=== PATIENT | female | born 1990 | race Caucasian/White ===

== ENCOUNTER 2016-10-02 17:36 | Emergency (ER) | payer OTHER ==
[2016-10-02] MEDS ORDERED: SODIUM CHLORIDE 0.9% 1,000 ML IV STA ×2 (20:42→22:20)
[2016-10-02] MEDS ORDERED: METOCLOPRAMIDE 5 MG/ML 2 ML VIAL IVP STA (20:46)
[2016-10-02 20:58] LABS: Basophils % (A) 0 %; CH 29.3; CHCM 34.2; Eosinophils % (A) 0 %; HCT 41.5 % (34.0-46.0); HDW 2.46; HGB 13.9 gm/dL (11.4-16.0); Luc # (Auto) 0.12; Luc % (Auto) 1; Lymphocytes % (A) 5 %; MCH 28.8 pg (25.0-35.0); MCHC 33.6 g/dL (31.0-37.0); MCV 85.8 fL (80.0-100.0); Mean Platelet Volume 6.9; Monocytes # (A) 0.6 k/uL (0-1.0); Monocytes % (A) 3 %; Neutrophils # (A) 17.8 k/uL (1.3-7.7); Neutrophils % (A) 91 %; RBC 4.83 m/uL (3.80-5.40); RDW 12.2 % (11.5-15.5); WBC 19.6 k/uL (3.8-10.6); WBC (Perox) 20.07
[2016-10-02 21:16] LABS: ALT 28 U/L (9-52); AST 19 U/L (14-36); Alkaline Phosphatase 65 U/L (38-126); Anion Gap 16 mmol/L; Blood Urea Nitrogen 9 mg/dL (7-17); Calcium 9.7 mg/dL (8.4-10.2); Carbon Dioxide 21 mmol/L (22-30); Chloride 103 mmol/L (98-107); Glucose 95 mg/dL (74-99); Non-African American GFR(MDRD) >60 (>60 ml/min/1.73 sqM); Potassium 4.2 mmol/L (3.5-5.1); Sodium 140 mmol/L (137-145); Total Bilirubin 0.6 mg/dL (0.2-1.3); Total Protein 7.9 g/dL (6.3-8.2)
--- NOTE | 2016-10-02 21:25 | ED ---
General Adult HPI - General Source: patient, family, RN notes reviewed, old records reviewed Mode of arrival: ambulatory Limitations: no limitations <Eugene Smart - Last Filed: 10/02/16 21:25> <Tobias Humphries - Last Filed: 10/02/16 23:22> - General Chief complaint: Dizziness Stated complaint: dizziness, heart racing 13 weeks Time Seen by Provider: 10/02/16 19:47 - History of Present Illness Initial comments: Chief complaint history of present illness a 26-year-old female who is 13 weeks . She states that while at work she was feeling dizzy. She's vomited half a dozen times today. She's had emesis gravidarum throughout the . (Eugene Smart) - Related Data Home Medications Medication Instructions Recorded Confirmed Pnv with Ca,No.72/Iron/FA 1 tab PO DAILY 10/02/16 10/02/16 [ Plus Tablet] Allergies Allergy/AdvReac Type Severity Reaction Status Date / Time No Known Allergies Allergy Verified 10/02/16 20:00 Review of Systems ROS Other: All systems not noted in ROS Statement are negative. <Eugene Smart - Last Filed: 10/02/16 21:25> ROS Other: All systems not noted in ROS Statement are negative. <Tobias Humphries - Last Filed: 10/02/16 23:22> ROS Statement: Those systems with pertinent positive or pertinent negative responses have been documented in the HPI. Review of systems when resting she feels fine. When she stands up she feels dizzy. Again she's been vomiting for multiple weeks and 6 times today. No diarrhea. Decreased appetite. Denies any pain. All systems were reviewed past medical problems migraines. Surgeries right inguinal herniorrhaphy repair. Family history mother had arrhythmias. Patient denies ALLERGIES she does not smoke. Denies alcohol use. (Eugene Smart) (Tobias Humphries) Past Medical History Additional Past Medical History / Comment(s): migraines History of Any Multi-Drug Resistant Organisms: None Reported Past Surgical History: Hernia Repair Past Psychological History: Anxiety, Bipolar, Depression Smoking Status: Never smoker Past Alcohol Use History: Occasional Past Drug Use History: None Reported <Eugene Smart - Last Filed: 10/02/16 21:25> General Exam Limitations: no limitations <Eugene Smart - Last Filed: 10/02/16 21:25> General appearance: alert, in no apparent distress Head exam: Present: atraumatic, normocephalic, normal inspection Eye exam: Present: normal appearance, PERRL, EOMI. Absent: scleral icterus, conjunctival injection, periorbital swelling ENT exam: Present: normal exam, mucous membranes moist Neck exam: Present: normal inspection. Absent: tenderness, meningismus, lymphadenopathy Respiratory exam: Present: normal lung sounds bilaterally. Absent: respiratory distress, wheezes, rales, rhonchi, stridor Cardiovascular Exam: Present: regular rate, normal rhythm, normal heart sounds. Absent: systolic murmur, diastolic murmur, rubs, gallop, clicks GI/Abdominal exam: Present: soft, normal bowel sounds. Absent: distended, tenderness, guarding, rebound, rigid Extremities exam: Present: normal inspection, full ROM, normal capillary refill. Absent: tenderness, pedal edema, joint swelling, calf tenderness Back exam: Present: normal inspection Neurological exam: Present: alert, oriented X3, CN II-XII intact Psychiatric exam: Present: normal affect, normal mood Skin exam: Present: warm, dry, intact, normal color. Absent: rash <Tobias Humphries - Last Filed: 10/02/16 23:22> - General Exam Comments Initial Comments: General: The patient is awake and alert, in no distress, and does not appear acutely ill. Comfortable when sitting still dizzy when she stands up. Vomited 6 times today. 13 weeks . Vital signs show temperature 98.5 pulse 98 history rate 18 pulse ox 99% room air blood pressure 1 weight over 67 Eye: Pupils are equal, , extra-ocular movements are intact; there is normal conjunctiva bilaterally. No signs of icterus. Ears, nose, mouth and throat: There are moist mucous membranes and no oral lesions. Neck: The neck is supple, there is no tenderness Cardiovascular: There is a regular rate and rhythm. No murmur, rub or gallop is appreciated. Respiratory: Lungs are clear to auscultation, respirations are non-labored, breath sounds are equal. No wheezes, stridor, rales, or rhonchi. Gastrointestinal: 13 weeks , nausea vomiting since the beginning of . She vomited 6 times today. Neurological: No neuro deficits Skin: Skin is warm and dry and no rashes or lesions are noted. (Eugene Smart) Course <Eugene Smart - Last Filed: 10/02/16 21:25> <Tobias Humphries - Last Filed: 10/02/16 23:22> Vital Signs 10/02/16 10/02/16 10/02/16 17:47 20:41 20:47 Temperature 98.5 F Pulse Rate 98 102 H 86 Respiratory 18 Rate Blood Pressure 108/67 O2 Sat by Pulse 99 Oximetry 10/02/16 23:16 Temperature 98.2 F Pulse Rate 90 Respiratory 20 Rate Blood Pressure 102/59 O2 Sat by Pulse 97 Oximetry (Eugene Smart) (Tobias Humphries) - Reevaluation(s) Reevaluation #1: 10/02/16 22:50 Patient states her symptoms are improved, asking to go home. Feeling better ( Tobias Humphries) EKG Findings - EKG Comments: EKG Findings:: EKG was done and reviewed at 2022 showing normal sinus rhythm no acute ST elevation no ectopy no ischemic changes. Rate 80. Was 1:30 QRS 84 QT [address] Smart <Eugene Smart - Last Filed: 10/02/16 21:25> Medical Decision Making - Lab Data Result diagrams: 10/02/16 20:40 10/02/16 20:40 <Eugene Smart - Last Filed: 10/02/16 21:25> - Lab Data Result diagrams: 10/02/16 20:40 10/02/16 20:40 <Tobias Humphries - Last Filed: 10/02/16 23:22> - Medical Decision Making 26 female year with hyperemesis, patient's symptoms are improved at this point. Labwork is otherwise normal. Urine is negative the patient can be discharged home\ Will await urine culture (Tobias Humphries) - Lab Data Lab Results 10/02/16 10/02/16 10/02/16 Range/Units 20:40 20:40 20:40 WBC 19.6 H (3.8-10.6) k/uL RBC 4.83 (3.80-5.40) m/uL Hgb 13.9 (11.4-16.0) gm/dL Hct 41.5 (34.0-46.0) % MCV 85.8 (80.0-100.0) fL MCH 28.8 (25.0-35.0) pg MCHC 33.6 (31.0-37.0) g/dL RDW 12.2 (11.5-15.5) % Plt Count 243 (150-450) k/uL Neutrophils % 91 % Lymphocytes % 5 % Monocytes % 3 % Eosinophils % 0 % Basophils % 0 % Neutrophils # 17.8 H (1.3-7.7) k/uL Lymphocytes # 1.0 (1.0-4.8) k/uL Monocytes # 0.6 (0-1.0) k/uL Eosinophils # 0.0 (0-0.7) k/uL Basophils # 0.0 (0-0.2) k/uL Sodium 140 (137-145) mmol/L Potassium 4.2 (3.5-5.1) mmol/L Chloride 103 (98-107) mmol/L Carbon Dioxide 21 L (22-30) mmol/L Anion Gap 16 mmol/L BUN 9 (7-17) mg/dL Creatinine 0.58 (0.52-1.04) mg/dL Est GFR (MDRD) Af Amer >60 (>60 ml/min/1.73 sqM) Est GFR (MDRD) Non-Af >60 (>60 ml/min/1.73 sqM) Glucose 95 (74-99) mg/dL Calcium 9.7 (8.4-10.2) mg/dL Total Bilirubin 0.6 (0.2-1.3) mg/dL AST 19 (14-36) U/L ALT 28 (9-52) U/L Alkaline Phosphatase 65 (38-126) U/L Total Protein 7.9 (6.3-8.2) g/dL Albumin 4.6 (3.5-5.0) g/dL Urine Color Yellow Urine Appearance Turbid H (Clear) Urine pH 5.5 (5.0-8.0) Ur Specific [place] 1.025 (1.001-1.035) Urine Protein 1+ H (Negative) Urine Glucose (UA) Negative (Negative) Urine Blood Negative (Negative) Urine Nitrate Negative (Negative) Urine Bilirubin Negative (Negative) Urine Urobilinogen <2.0 (<2.0) mg/dL Ur Leukocyte Esterase Trace H (Negative) Urine RBC 5 (0-5) /hpf Urine WBC 33 H (0-5) /hpf Ur Squamous Epith Cells 56 H (0-4) /hpf Amorphous Sediment Few H (None) /hpf Urine Bacteria Moderate H (None) /hpf Hyaline Casts 21 H (0-2) /lpf Urine Mucus Many H (None) /hpf (Eugene Smart) (Tobias Humphries) Disposition <Eugene Smart - Last Filed: 10/02/16 21:25> <Tobias Humphries - Last Filed: 10/02/16 23:22> Clinical Impression: Hyperemesis gravidarum, Nausea & vomiting Disposition: HOME SELF-CARE Condition: Good Instructions: Hyperemesis Gravidarum (ED) Referrals: Clinton Solis MD [Primary Care Provider] - 1-2 days
[2016-10-02] MEDS ORDERED: PYRIDOXINE 100 MG/ML 1 ML VIAL IVP STA (22:20)
[2016-10-02] MEDS ORDERED: diphenhydrAMINE 50 MG/ML 1 ML VIAL IVP STA (22:20)
[2016-10-02 23:12] LABS: Amorphous Sediment,Urine Few /hpf; Appearance,Urine Turbid (Clear); Bacteria,Urine Moderate /hpf; Bilirubin,Urine Negative (Negative); Glucose,Urine (UA) Negative (Negative); Ketones,Urine 4+ (Negative); Leukocyte Esterase,Urine Trace (Negative); Mucus,Urine Many /hpf; Nitrite,Urine Negative (Negative); PH, Urine 5.5 (5.0-8.0); Particle Count 114008; Protein,Urine 1+ (Negative); RBC,Urine 5 /hpf (0-5); Specific Gravity,Urine 1.025 (1.001-1.035); Squamous Epithelial Cell,Urine 56 /hpf (0-4); UA Billing (MACRO vs. MICRO) MICRO; Urobilinogen,Urine <2.0 mg/dL (<2.0); WBC,Urine 33 /hpf (0-5)
[2016-10-02 23:17] VITALS: BP 102/59; PULSE 90; RESP 20; TEMP 98.2
== END 2016-10-02 23:33 | disposition home or self-care (01) ==
LOC: EC 17:36
DX: O21.0 Mild hyperemesis gravidarum (principal); O26.891 Other specified pregnancy related conditions, first trimester; R42 Dizziness and giddiness; Z3A.13 13 weeks gestation of pregnancy
CPT/HCPCS: 99284; 96374; 96375; 36415; 80053; 85025; 81001; 87086; J1200; J3415; J2765; 93005

== ENCOUNTER → 2016-10-09 | Outpatient (CLI) | payer OTHER ==
[2016-10-09 19:05] LABS: Hemoglobin A1C 5.5 % (4.2-6.1)
== END | disposition home or self-care (01) ==
LOC: LABWHC1 12:06
PROVIDERS: ATTEND Obstetrics & Gynecology
DX: Z13.1 Encounter for screening for diabetes mellitus (principal)
CPT/HCPCS: 36415; 83036

== ENCOUNTER → 2017-01-09 | Outpatient (CLI) | payer OTHER ==
[2017-01-09 11:39] LABS: CHCM 32.6; HCT 35.3 % (34.0-46.0); HDW 2.53; HGB 11.7 gm/dL (11.4-16.0); MCH 29.6 pg (25.0-35.0); MCHC 33.1 g/dL (31.0-37.0); MCV 89.5 fL (80.0-100.0); Mean Platelet Volume 6.9; RBC 3.95 m/uL (3.80-5.40); WBC 12.3 k/uL (3.8-10.6)
== END | disposition home or self-care (01) ==
LOC: LABWHC1 10:19
PROVIDERS: ATTEND Obstetrics & Gynecology
DX: Z34.02 Encounter for supervision of normal first pregnancy, second trimester (principal); Z3A.00 Weeks of gestation of pregnancy not specified
CPT/HCPCS: 36415; 82950; 85027; 86850

== ENCOUNTER → 2017-01-16 | Outpatient (CLI) | payer OTHER ==
[2017-01-16 12:14] LABS: Glucose 3 Hour, Gest 127 mg/dL
== END | disposition home or self-care (01) ==
LOC: LABWHC1 08:00
PROVIDERS: ATTEND Obstetrics & Gynecology
DX: O99.810 Abnormal glucose complicating pregnancy (principal); Z3A.00 Weeks of gestation of pregnancy not specified
CPT/HCPCS: 36415; 82951; 82952

== ENCOUNTER 2017-02-11 22:18 | Outpatient (CLI) | payer OTHER ==
[2017-02-11 22:49] LABS: Glucose,Whole Blood 121 mg/dL (75-99)
[2017-02-11 22:55] LABS: Appearance,Urine Clear (Clear); Bilirubin,Urine Negative (Negative); Glucose,Urine (UA) 2+ (Negative); Ketones,Urine Negative (Negative); Leukocyte Esterase,Urine Negative (Negative); Nitrite,Urine Negative (Negative); PH, Urine 6.5 (5.0-8.0); Protein,Urine Negative (Negative); Specific Gravity,Urine 1.007 (1.001-1.035); UA Billing (MACRO vs. MICRO) CHEM; Urobilinogen,Urine <2.0 mg/dL (<2.0)
[2017-02-11 23:03] VITALS: BP 114/72; PULSE 79; RESP 16; TEMP 95.9
--- NOTE | 2017-03-07 08:33 | P.MSEPDOC ---
Presenting Problems - Arrival Data Date of Arrival on Unit: 02/11/17 Time of Arrival on Unit: 21:19 Mode of Transport: Wheelchair - Complaint OB-Reason for Admission/Chief Complaint: Pain Comment: Lower back pain, absence of contractions Medical History - Information : 1 Para: 0 Term: 0 : 0 Abortions: Spontaneous or Elective: 0 Number of Living Children: 0 - Gestational Age Expected Date of Delivery: 04/04/17 Gestational Age by SERVANDO (wks/days): 36 Weeks and 0 Days - History Complications: GDM Comment: Patient seen at [facility] last week for evaluation for gestational diabetes, patient currently diet controlled. Review of Systems - Review of Systems Constitutional: No problems Breast: No problems ENT: No problems Cardiovascular: No problems Respiratory: No problems Gastrointestinal: No problems Genitourinary: No problems Musculoskeletal: No problems Neurological: No problems Skin: No problems Vital Signs - Temperature Temperature: 95.9 F Temperature Source: Temporal Artery Scan - Pulse Pulse Oximetery Pulse Rate: 79 Pulse Assessment Method: Automatic Cuff - Respirations Respiratory Rate: 16 Oxygen Delivery Method: Room Air - Blood Pressure Sitting Blood Pressure: 114/72 Blood Pressure Mean: 86 Blood Pressure Source: Automatic Cuff Medical Screen Scoring (Pre) - Cervical Exam Dilation: 0 cm = 0 Membranes: Intact - Uterine Contractions Frequency: N/A Duration: N/A Intensity: N/A - Maternal Vital Signs Maternal Temperature: N/A Maternal Blood Pressure: N/A Signs of Preeclampsia: N/A Maternal Respirations: N/A - Maternal Trauma Maternal Trauma: N/A - Assessment Baseline FHR: 135 Heart Rate - NICHD Category: Category I (Normal) = 0 NST: Reactive Position: N/A Station: N/A - Total Score Total Score (Pre): 0 - Level of Risk Level of Risk: Low (0-5) Physician Notification (Pre) - Physician Notified Physician Notified Date: 02/11/17 Physician Notified Time: 22:30 Physician/Practitioner Notifed:: Dr. Osorio - Notification Comment Comment: Collect FFN, check cervix, collect and send UA, call physician with report. Medical Screen Scoring (Post) - Cervical Exam Dilation: Exam Deferred - Uterine Contractions Frequency: N/A Duration: N/A Intensity: N/A - Maternal Vital Signs Maternal Temperature: N/A Maternal Blood Pressure: N/A Signs of Preeclampsia: N/A Maternal Respirations: N/A - Maternal Trauma Maternal Trauma: N/A - Assessment Heart Rate: 135 Heart Rate - NICHD Category: Category I (Normal) = 0 NST: Reactive Position: N/A Station: N/A - Total Score Total Score (Post): 0 - Post Treatment Level of Risk Post Treatment Level of Risk: Low (0-5) Physician Notification (Post) - Physician Notified Physician Notified Date: 02/11/17 Physician Notified Time: 23:06 Physician/Practitioner Notified:: Dr. Osorio - Notification Comment Comment: Okay to discharge patient home with instructions Disposition - Disposition OB Disposition: Discharge to home, Written follow up instructions reviewed Discharge Date: 02/11/17 Discharge Time: 23:18 I agree with the RN Medical Screening Exam: Yes Risk & Benefit of care provided described in d/c instruction: Yes Diagnosis: RELATED CONDITIONS, UNSPECIFIED, THIRD TRIMESTER
== END 2017-02-11 23:18 | disposition home or self-care (01) ==
LOC: FBPOP 22:18
PROVIDERS: ATTEND Obstetrics & Gynecology
DX: O26.93 Pregnancy related conditions, unspecified, third trimester (principal); Z3A.36 36 weeks gestation of pregnancy
CPT/HCPCS: 59025; 81003; 99213

== ENCOUNTER → 2017-02-15 | Outpatient (CLI) | payer OTHER | END | disposition home or self-care (01) | LOC: LABWHC1 16:19 | PROVIDERS: ATTEND Pediatrics Neonatal-Perinatal Medicine | DX: Z00.00 Encounter for general adult medical examination without abnormal findings (principal); E78.00 Pure hypercholesterolemia, unspecified; E03.9 Hypothyroidism, unspecified; I12.9 Hypertensive chronic kidney disease with stage 1 through stage 4 chronic kidney disease, or unspecified chronic kidney disease; N18.3 Chronic kidney disease, stage 3 (moderate); I25.10 Atherosclerotic heart disease of native coronary artery without angina pectoris; I48.91 Unspecified atrial fibrillation; R79.9 Abnormal finding of blood chemistry, unspecified | CPT/HCPCS: 36415; 82947; 83036 ==

== ENCOUNTER 2017-03-16 13:42 | Outpatient (CLI) | payer OTHER ==
[2017-03-16 15:48] VITALS: BP 118/81; PULSE 109; RESP 16; TEMP 96.2
== END 2017-03-16 15:35 | disposition home or self-care (01) ==
LOC: FBPOP 13:42
PROVIDERS: ATTEND Obstetrics & Gynecology
DX: O47.1 False labor at or after 37 completed weeks of gestation (principal); Z3A.37 37 weeks gestation of pregnancy
CPT/HCPCS: 59025; 99213

== ENCOUNTER 2017-03-17 20:33 | Outpatient (CLI) | payer OTHER ==
[2017-03-17 20:57] VITALS: BP 133/80; PULSE 93; RESP 18; TEMP 97.2
--- NOTE | 2017-03-18 16:05 | P.MSEPDOC ---
Presenting Problems - Arrival Data Date of Arrival on Unit: 03/17/17 Time of Arrival on Unit: 20:33 Mode of Transport: Wheelchair - Complaint OB-Reason for Admission/Chief Complaint: Possible Onset of Labor, Rule Out SROM Comment: ctx 729 SROM 0800 Medical History - Information : 1 Para: 0 Term: 0 : 0 Abortions: Spontaneous or Elective: 0 Number of Living Children: 0 - Gestational Age Expected Date of Delivery: 04/04/17 Gestational Age by SERVANDO (wks/days): 37 Weeks and 4 Days - History Complications: GDM Comment: glyburide Review of Systems - Review of Systems Constitutional: No problems Breast: No problems ENT: No problems Cardiovascular: No problems Respiratory: No problems Gastrointestinal: No problems Genitourinary: No problems Musculoskeletal: No problems Neurological: No problems Skin: No problems Vital Signs - Temperature Temperature: 97.2 F Temperature Source: Temporal Artery Scan - Pulse Right Brachial Pulse Rate: 93 Pulse Assessment Method: Automatic Cuff - Respirations Respiratory Rate: 18 Oxygen Delivery Method: Room Air O2 Sat by Pulse Oximetry: 98 - Blood Pressure Right Arm Blood Pressure: 133/80 Blood Pressure Mean: 97 Blood Pressure Source: Automatic Cuff Medical Screen Scoring (Pre) - Cervical Exam Dilation: 1-3 cm = 1 Effacement: More than 50% = 2 Membranes: Intact - Uterine Contractions Frequency: > 5 minutes apart = 1 Duration: > 40 seconds = 2 - Assessment Baseline FHR: 130 Heart Rate - NICHD Category: Category I (Normal) = 0 NST: Reactive - Total Score Total Score (Pre): 6 - Level of Risk Level of Risk: Medium (6-9) Medical Screen Scoring (Post) - Cervical Exam Dilation: 1-3 cm = 1 Effacement: More than 50% = 2 Membranes: Intact - Uterine Contractions Frequency: > or = 36 weeks =2 Duration: > 40 seconds = 2 - Total Score Total Score (Post): 7 - Post Treatment Level of Risk Post Treatment Level of Risk: Medium (6-9) Physician Notification (Post) - Physician Notified Physician Notified Date: 03/18/17 Physician Notified Time: 10:28 Physician/Practitioner Notified:: Evelyn New Order Received: Yes (discharge if no cervical change) Disposition - Disposition OB Disposition: Triage, Discharge to home, Written follow up instructions reviewed Discharge Date: 03/18/17 Discharge Time: 00:00 I agree with the RN Medical Screening Exam: Yes Risk & Benefit of care provided described in d/c instruction: Yes Diagnosis: FALSE LABOR AT OR AFTER 37 COMPLETED WEEKS OF GESTATION
== END 2017-03-18 | disposition home or self-care (01) ==
LOC: FBPOP 20:33
PROVIDERS: ATTEND Obstetrics & Gynecology
DX: O47.1 False labor at or after 37 completed weeks of gestation (principal); Z3A.37 37 weeks gestation of pregnancy
CPT/HCPCS: 59025; 84112; 99213

== ENCOUNTER 2017-03-18 13:51 | Inpatient (IN) | payer OTHER ==
[2017-03-18] MEDS ORDERED: OXYTOCIN 10 UNIT/ML 1 ML VIAL IM PRN (14:26)
[2017-03-18] MEDS ORDERED: METHYLERGONOVINE 0.2 MG/ML 1 ML AMP IM PRN (14:26)
[2017-03-18] MEDS ORDERED: CARBOPROST TROMETHAMINE 250 MCG/ML 1 ML AMP IM PRN (14:26)
[2017-03-18] MEDS ORDERED: TERBUTALINE 1 MG/ML VIAL SQ PRN (14:26)
[2017-03-18] MEDS ORDERED: LIDOCAINE 1% (PF) 10 MG/ML (30 ML SDV) SQ PRN (14:26)
[2017-03-18 14:35] LABS: Basophils % (A) 0 %; CH 29.5; CHCM 34.1; Eosinophils % (A) 0 %; HCT 37.2 % (34.0-46.0); HDW 2.61; HGB 12.7 gm/dL (11.4-16.0); Luc # (Auto) 0.28; Luc % (Auto) 2; Lymphocytes # (A) 2.6 k/uL (1.0-4.8); Lymphocytes % (A) 15 %; MCH 29.5 pg (25.0-35.0); MCV 86.8 fL (80.0-100.0); Mean Platelet Volume 7.3; Monocytes # (A) 0.7 k/uL (0-1.0); Monocytes % (A) 4 %; Neutrophils # (A) 13.7 k/uL (1.3-7.7); Neutrophils % (A) 79 %; RBC 4.29 m/uL (3.80-5.40); RDW 13.4 % (11.5-15.5); WBC 17.3 k/uL (3.8-10.6); WBC (Perox) 18.06
--- NOTE | 2017-03-18 15:08 | P.HPOB ---
History of Present Illness H&P Date: 03/18/17 Chief Complaint: Rupture of membranes, contractions This is a 26-year-old female 1 para 0 with an estimated date of confinement of 04/04/2017, estimated gestational age of 37-4/7 weeks, who presented to labor and delivery complaining of she will rupture membranes at approximately 11:30 AM today to where it soaked her clothes. It has been continuous since that time. She has been feeling contractions for the last few days that have become stronger and more regular. She did come in to triage late last night and was checked with amnisure and it was negative at that time. care has been with Dr. Myers and has been complicated by gestational diabetes on glyburide. She states her sugars have been fairly well- controlled with an occasional high level. labs: Blood type-O- Antibody screen-negative, she does not recall ever receiving RhoGAM during this . 1 hour Glucola-169 Three-hour Glucola-fasting and one-hour are elevated Syphilis antibody-negative nonreactive Hepatitis B surface antigen-negative HIV-nonreactive Rubella-nonimmune Toxoplasma-negative Obstetrical history: Gynecologic history: Denies any sexual transmitted diseases Review of Systems Constitutional: Denies chills, Denies fever Eyes: denies blurred vision, denies pain Cardiovascular: Denies chest pain, Denies shortness of breath Gastrointestinal: Reports abdominal pain (Contractions) Genitourinary: Reports Musculoskeletal: Denies myalgias Neurological: Denies numbness, Denies weakness Past Medical History Additional Past Medical History / Comment(s): migraines History of Any Multi-Drug Resistant Organisms: None Reported Past Surgical History: Hernia Repair (Right inguinal) Additional Past Surgical History / Comment(s): [place] teeth Past Psychological History: No Psychological Hx Reported Smoking Status: Former smoker Past Alcohol Use History: None Reported Past Drug Use History: None Reported Medications and Allergies Home Medications Medication Instructions Recorded Confirmed Type Pnv,Calcium 72/Iron/Folic Acid 1 tab PO DAILY 10/02/16 03/18/17 History [ Plus Tablet] glyBURIDE [Glyburide] 5 mg PO BID 03/16/17 03/18/17 History Allergies Allergy/AdvReac Type Severity Reaction Status Date / Time No Known Allergies Allergy Verified 03/16/17 13:51 Exam Osteopathic Statement: *. No significant issues noted on an osteopathic structural exam other than those noted in the History and Physical/Consult. - Vital Signs Vital signs: Intake and Output 03/17/17 03/18/17 03/18/17 22:59 06:59 14:59 Other: Weight 80.286 kg Patient Weight 03/19/17 06:59 Weight 80.286 kg HEENT: Within normal limits Heart: Regular rate and rhythm Lungs: Clear to auscultation bilaterally Abdomen: Cervix: 5-6 cm/90%/-2 station, positive amnisure with clear fluid noted heart tones: Reactive Contractions: Every 2-3 minutes Extremities: Negative Homans Results Result Diagrams: 03/18/17 14:25 Abnormal Lab Results - Last 24 Hours (Table) 03/18/17 Range/Units 14:25 WBC 17.3 H (3.8-10.6) k/uL Neutrophils # 13.7 H (1.3-7.7) k/uL Assessment and Plan (1) 37 weeks gestation of Status: Acute (2) Spontaneous rupture of membranes Status: Acute Plan: Admission for labor. Epidural anesthesia. Expectant management.
[2017-03-18 15:10] VITALS: BMI 27.7
[2017-03-18] MEDS ORDERED: fentaNYL (PF) 50 MCG/ML 5 ML AMP ONE ×2 (15:12→22:42)
[2017-03-18] MEDS ORDERED: SODIUM CHLORIDE 0.9% 100 ML BAG ONE ×2 (15:12→22:42)
[2017-03-18] MEDS ORDERED: BUPIVACAINE (PF) 0.25% 30 ML VIAL ONE ×2 (15:12→22:42)
[2017-03-18] MEDS ORDERED: BUPIVACAINE (PF) 0.25% 25 ML, fentaNYL (PF) 200 MCG in SODIUM CHLORIDE 0.9% 71 ML EPIDURAL ONE (15:30)
[2017-03-18 15:44] LABS: Glucose,Whole Blood 108 mg/dL (75-99)
[2017-03-18] MEDS: LACTATED RINGERS 1,000 ML IV SCH (16:10)
[2017-03-18] MEDS ORDERED: OXYTOCIN 20 UNITS/1000 ML NS 1,000 ML IV SCH ×2 (17:15→23:48)
[2017-03-18 18:25] LABS: Glucose,Whole Blood 114 mg/dL (75-99)
[2017-03-18] MEDS ORDERED: ceFAZolin 2 GM in SODIUM CHLORIDE 0.9% 100 ML IVPB ONE (22:27)
[2017-03-18] MEDS ORDERED: CITRIC ACID-SODIUM CITRATE 15 ML CUP PO ONE (22:27)
[2017-03-18] MEDS ORDERED: OXYTOCIN 10 UNIT/ML 1 ML VIAL ONE (22:42)
[2017-03-18] MEDS ORDERED: KETOROLAC 30 MG/ML 1 ML VIAL ONE (22:42)
--- NOTE | 2017-03-18 23:34 | P.OP ---
Date of Procedure: 03/18/17 Preoperative Diagnosis: 1. Intrauterine at 37-4/7 weeks. 2. Arrest of descent. 3. Gestational diabetes. Postoperative Diagnosis: Same Procedure(s) Performed: Primary low transverse section Implants: Anesthesia: epidural Surgeon: Pattie Rivas [employer] Cutter #1: Navin Lopez Estimated Blood Loss (ml): 600 Pathology: other (Placenta) Condition: stable Disposition: floor Indications for Procedure: This is a 26-year-old female 1 para 0 at 37-4/7 weeks who presented in active labor with spontaneous rupture of membranes. She did receive oxytocin augmentation of labor and progressed to complete dilation. She pushed for approximately an hour and 45 minutes with arrest of descent noted and increasing caput noted. At this point maternal exhaustion also set in. The patient requested section and I agreed based on the poor descent of the presenting part. I have discussed the risks, benefits, and alternative therapies for the above- mentioned procedure and for both sedation/anesthesia as well as necessary blood products administration, if indicated, as they pertain to this patient. The patient has indicated her understanding and acceptance of the risks and procedures discussed. Operative Findings: A viable female is noted in the left occiput transverse lie with scores of 8 at 1 minute and 9 at 5 minutes and weight of 8 lbs. 5 oz. Normal uterus tubes and ovaries are noted. Description of Procedure: The patient is taken to the operating room where she is placed in the dorsal supine position with leftward tilt after epidural anesthesia is bolused. She is prepped and draped in the normal sterile fashion. Skin was tested and found to be adequately anesthetized. A Pfannenstiel skin incision was made with a scalpel. A second knife was used to carry the incision down to the underlying layer of fascia. The fascia was nicked in the midline with a scalpel and then extended laterally bilaterally with Norton scissors. The anterior lip of the fascia was grasped with 2 Kofi clamps and then dissected off the underlying rectus muscle in the midline with Notron scissors. The inferior aspect of the fascial incision was grasped with 2 Kofi clamps and dissected off the underlying rectus muscle and the midline with Norton scissors. Next the peritoneum layer was tented up with 2 hemostats and then entered sharply with the scalpel. The incision is extended superiorly and inferiorly with Metzenbaum scissors. Next a DeLee retractor is placed. The vesicouterine peritoneum is entered sharply with Metzenbaum scissors and extended laterally bilaterally with Metzenbaum scissors and then the bladder flap is pushed inferiorly. The lower uterine segment is incised in transverse fashion with the scalpel and then bluntly entered with a hemostat. Clear fluid is noted. The incision was then extended laterally bilaterally with 2 fingers. Next the infant's head is delivered through the incision. Nose and mouth are bulb suctioned. The remainder of the infant is easily delivered and placed on mother 's abdomen. Cord is clamped and cut. Infant is taken to warmer by nursing staff. Uterine fundus is gently massaged and placenta is delivered manually. Uterus is exteriorized and cleared of all clots and debris. Uterine incision is closed with 0 Vicryl suture in a running locked fashion. A second layer of 0 Vicryl suture is used in a running fashion for hemostasis. Once adequate hemostasis as assured, the vesicouterine peritoneum is reapproximated with 2-0 Vicryl suture in a running fashion. Posterior cul-de-sac is suctioned of all clots and debris. Uterus is returned to the abdomen. Incision is noted to be hemostatic. Peritoneal layer is closed with 0 Vicryl suture in a running fashion. Muscle layer is reapproximated with 0 Vicryl suture in interrupted fashion. Fascia layer is then closed with 0 PDS suture with 2 sutures meeting in the midline and the knots buried in either side and in the midline. The subcutaneous tissue was then closed with 2-0 Vicryl suture. Skin layer was then closed with arie. All sponge and needle counts are correct. The patient is taken to recovery room in stable condition.
[2017-03-18] MEDS ORDERED: ONDANSETRON 4 MG/2 ML VIAL IVP PRN (23:48)
[2017-03-18] MEDS ORDERED: ZOLPIDEM 5 MG TAB PO PRN (23:48)
[2017-03-18] MEDS ORDERED: diphenhydrAMINE 25 MG CAP PO PRN (23:48)
[2017-03-18] MEDS ORDERED: diphenhydrAMINE 50 MG CAP PO PRN (23:48)
[2017-03-18] MEDS ORDERED: Acetaminophen-Codeine 300-30mg TAB PO PRN (23:48)
[2017-03-18] MEDS ORDERED: HYDROmorphone PCA 5 MG/25 ML SYRINGE IV PRN (23:48)
[2017-03-18] MEDS ORDERED: METOCLOPRAMIDE 5 MG/ML 2 ML VIAL IVP PRN (23:48)
[2017-03-18] MEDS ORDERED: ACETAMINOPHEN TAB 325 MG TAB PO PRN (23:48)
[2017-03-18] MEDS ORDERED: diphenhydrAMINE 50 MG/ML 1 ML VIAL IVP PRN ×2 (23:48)
[2017-03-18] MEDS ORDERED: NALOXONE 0.4 MG/ML 1 ML VIAL IV PRN (23:48)
[2017-03-18] MEDS ORDERED: MEASLES-MUMPS-RUBELLA VACC/PF 12,500 UNIT/0.5 ML VIAL SQ ONE (23:48)
[2017-03-18] MEDS ORDERED: LANOLIN CREAM 5 GM TUBE TOPICAL PRN (23:48)
[2017-03-19] MEDS: SENNOSIDES-DOCUSATE SODIUM 1 EACH TAB PO SCH ×2 (02:07→19:34)
[2017-03-19] MEDS: LACTATED RINGERS 1,000 ML IV SCH ×2 (02:14→05:56)
[2017-03-19] MEDS ORDERED: Rhogam IMMUNE GLOBULIN 1,500 UNIT/1 ML IM ONE (04:30)
[2017-03-19] MEDS: KETOROLAC 30 MG/ML 1 ML VIAL IVP SCH ×3 (05:47→18:51)
[2017-03-19 06:25] LABS: Basophils % (A) 0 %; CH 29.3; CHCM 34.1; Eosinophils % (A) 0 %; HCT 30.6 % (34.0-46.0); HDW 2.57; HGB 10.3 gm/dL (11.4-16.0); Luc # (Auto) 0.22; Luc % (Auto) 1; Lymphocytes # (A) 1.8 k/uL (1.0-4.8); Lymphocytes % (A) 9 %; MCH 29.1 pg (25.0-35.0); MCHC 33.7 g/dL (31.0-37.0); MCV 86.2 fL (80.0-100.0); Mean Platelet Volume 7.5; Monocytes # (A) 0.6 k/uL (0-1.0); Monocytes % (A) 3 %; Neutrophils # (A) 16.8 k/uL (1.3-7.7); Neutrophils % (A) 87 %; RBC 3.55 m/uL (3.80-5.40); WBC 19.4 k/uL (3.8-10.6); WBC (Perox) 20.38
--- NOTE | 2017-03-19 06:51 | P.PNOBGPC ---
Subjective - Subjective Principal diagnosis: S/P 1*LTCS POD #1 Interval history: PAtient seen and examined. Pain controlled. Tolerating clears. Denies N/V, F/C, CP, SOB, calf pain. Patient reports: Reports appetite normal, Reports pain well controlled Sledge: doing well Objective - Vital Signs Latest vital signs: Vital Signs Temp Pulse Resp BP Pulse Ox 03/19/17 04:00 98.7 F 88 16 116/69 96 03/19/17 01:35 97.6 F 100 16 137/69 03/19/17 01:05 110 H 16 148/77 98 03/19/17 00:35 108 H 16 117/60 99 03/19/17 00:20 126 H 16 132/66 98 03/19/17 00:05 118 H 16 124/64 98 03/18/17 23:50 120 H 16 125/69 98 03/18/17 23:48 98 03/18/17 23:35 96.8 F L 134 H 16 129/61 97 03/18/17 13:54 97.3 F L 93 16 136/80 98 Intake and Output 03/18/17 03/18/17 03/19/17 14:59 22:59 06:59 Output Total 600 Balance -600 Output: Estimated Blood Loss 600 Other: Weight 80.286 kg Patient Weight 03/19/17 06:59 Weight 80.286 kg - Exam Lungs: bilateral: normal Chest: Normal S1, Normal S2 Extremities: Present: normal Abdomen: Present: normal appearance, soft. Absent: distention, tenderness Incision: Present: normal, dry, intact Uterus: Present: normal, firm - Labs Labs: Abnormal Lab Results - Last 24 Hours (Table) 03/18/17 03/18/17 03/18/17 Range/Units 14:25 15:42 18:23 WBC 17.3 H (3.8-10.6) k/uL RBC (3.80-5.40) m/uL Hgb (11.4-16.0) gm/dL Hct (34.0-46.0) % Neutrophils # 13.7 H (1.3-7.7) k/uL POC Glucose (mg/dL) 108 H 114 H (75-99) mg/dL 03/19/17 Range/Units 06:04 WBC 19.4 H (3.8-10.6) k/uL RBC 3.55 L (3.80-5.40) m/uL Hgb 10.3 L (11.4-16.0) gm/dL Hct 30.6 L (34.0-46.0) % Neutrophils # 16.8 H (1.3-7.7) k/uL POC Glucose (mg/dL) (75-99) mg/dL Assessment and Plan (1) Status post primary low transverse section Narrative/Plan: 1. D/C wyman 2. D/C ASSIGNMENT DESK ASSISTANT 3. po pain meds 4. increase ambulation 5. advance diet with flatus Current Visit: Yes Status: Acute Code(s): Z98.891 - HISTORY OF UTERINE SCAR FROM PREVIOUS SURGERY SNOMED Code(s): 006339395
[2017-03-19] MEDS: Acetaminophen-Codeine 300-30mg TAB PO PRN ×2 (15:42→21:35)
[2017-03-20] MEDS: KETOROLAC 30 MG/ML 1 ML VIAL IVP SCH ×3 (00:27→17:03)
[2017-03-20] MEDS: LACTATED RINGERS 1,000 ML IV SCH (06:08)
[2017-03-20] MEDS: Acetaminophen-Codeine 300-30mg TAB PO PRN ×3 (08:36→23:20)
[2017-03-20] MEDS: SENNOSIDES-DOCUSATE SODIUM 1 EACH TAB PO SCH ×2 (08:36→18:14)
[2017-03-20] MEDS ORDERED: SIMETHICONE 80 MG CHEWABLE PO PRN (09:15)
--- NOTE | 2017-03-20 10:43 | P.PNOBGPC ---
Subjective - Subjective Principal diagnosis: Status post primary low transverse postop day #2 Interval history: Patient seen and examined. Denies nausea, vomiting, chest pain, shortness of breath or calf pain. Patient reports: Reports appetite normal, Reports voiding normally, Reports pain well controlled, Reports ambulating normally : doing well Objective - Vital Signs Latest vital signs: Vital Signs Temp Pulse Resp BP Pulse Ox 03/20/17 08:00 98.3 F 75 18 110/74 98 03/19/17 23:44 97.7 F 86 15 101/74 03/19/17 20:00 98.0 F 84 15 121/80 03/19/17 16:00 97.8 F 98 18 121/68 98 03/19/17 12:00 97.7 F 89 18 120/67 97 Intake and Output 03/19/17 03/20/17 03/20/17 22:59 06:59 14:59 Output Total 250 Balance -250 Output: Urine 250 Other: # Voids 1 - Exam Lungs: bilateral: normal Chest: Normal S1, Normal S2 Extremities: Present: normal Abdomen: Present: normal appearance, soft. Absent: distention, tenderness Incision: Present: normal, dry, intact Uterus: Present: normal, firm Assessment and Plan (1) Status post primary low transverse section Narrative/Plan: 1. Increase ambulation Current Visit: Yes Status: Acute Code(s): Z98.891 - HISTORY OF UTERINE SCAR FROM PREVIOUS SURGERY SNOMED Code(s): 738482476
[2017-03-20] MEDS: IBUPROFEN 600 MG TAB PO PRN ×2 (13:06→18:14)
[2017-03-21] MEDS: IBUPROFEN 600 MG TAB PO PRN ×3 (02:02→19:29)
--- NOTE | 2017-03-21 07:50 | P.DS ---
Providers Date of admission: 03/18/17 14:29 Expected date of discharge: 03/21/17 Attending physician: Lexi Myers Primary care physician: Lexi Myers - Discharge Diagnosis(es) (1) Status post primary low transverse section Current Visit: Yes Status: Acute Hospital Course: Patient presented in labor and did undergo a primary low transverse . Her postoperative course was uncomplicated. She denies nausea, vomiting, chest pain, shortness of breath or calf pain. Her pain is well-controlled and her incision is clean, dry, and intact. She is ambulating voiding without difficulty. Tolerating regular diet. She'll be discharged home postoperative day #3 in stable condition to follow-up with me in 7-10 days. Plan - Discharge Summary New Discharge Prescriptions: New Acetaminophen-Codeine 300-30mg [Tylenol w/codeine #3] 2 each PO Q6H PRN #30 tab PRN Reason: Moderate To Severe Pain Ibuprofen [Motrin] 600 mg PO Q6HR PRN #30 tab PRN Reason: Mild Pain Or Fever >= 100.5 No Action Pnv,Calcium 72/Iron/Folic Acid [ Plus Tablet] 1 tab PO DAILY glyBURIDE [Glyburide] 5 mg PO BID Discharge Medication List Pnv,Calcium 72/Iron/Folic Acid [ Plus Tablet] 1 tab PO DAILY 10/02/16 [ History] glyBURIDE [Glyburide] 5 mg PO BID 03/16/17 [History] Acetaminophen-Codeine 300-30mg [Tylenol w/codeine #3] 2 each PO Q6H PRN #30 tab 03/21/17 [Rx] Ibuprofen [Motrin] 600 mg PO Q6HR PRN #30 tab 03/21/17 [Rx] Follow up Appointment(s)/Referral(s): Lexi Myers DO [Primary Care Provider] - 10 Days Discharge Disposition: HOME SELF-CARE
[2017-03-21] MEDS: SENNOSIDES-DOCUSATE SODIUM 1 EACH TAB PO SCH ×2 (08:06→19:29)
[2017-03-21] MEDS: Acetaminophen-Codeine 300-30mg TAB PO PRN ×2 (13:59→23:51)
[2017-03-21] MEDS ORDERED: MEASLES-MUMPS-RUBELLA VACC/PF 12,500 UNIT/0.5 ML VIAL SQ ONE (21:56)
[2017-03-22 00:16] VITALS: RESP 16
[2017-03-22] MEDS: SENNOSIDES-DOCUSATE SODIUM 1 EACH TAB PO SCH (08:18)
[2017-03-22] MEDS: IBUPROFEN 600 MG TAB PO PRN (08:18)
[2017-03-22 08:23] VITALS: BP 121/74; PULSE 85; TEMP 98.6
== END 2017-03-22 15:10 | disposition home or self-care (01) | DRG 765 ==
LOC: FBPOP 13:51 → 4FBP 14:29
PROVIDERS: ADMIT Obstetrics & Gynecology; ATTEND Obstetrics & Gynecology
PROC: 10D00Z1 Extraction of Products of Conception, Low, Open Approach (ICD-10-PCS; principal; 2017-03-18 22:55)
DX: O24.429 Gestational diabetes mellitus in childbirth, unspecified control (principal); O99.354 Diseases of the nervous system complicating childbirth; Z37.0 Single live birth; O62.1 Secondary uterine inertia; O75.81 Maternal exhaustion complicating labor and delivery; G43.909 Migraine, unspecified, not intractable, without status migrainosus; Z3A.37 37 weeks gestation of pregnancy; Z87.891 Personal history of nicotine dependence; Z79.84 Long term (current) use of oral hypoglycemic drugs
CPT/HCPCS: 59025; 84112; 85025; 85461; 86850; 86900; 86901; 88307; 90707; 99213

== ENCOUNTER 2019-06-14 22:09 | Emergency (ER) | payer OTHER ==
[2019-06-14 22:41] VITALS: RESP 18
[2019-06-14] MEDS ORDERED: SODIUM CHLORIDE 0.9% 1,000 ML IV STA (23:09)
[2019-06-14] MEDS ORDERED: ONDANSETRON 4 MG/2 ML VIAL IVP STA (23:09)
[2019-06-14 23:23] LABS: Appearance,Urine Clear (Clear); Bilirubin,Urine Negative (Negative); Blood,Urine Negative (Negative); Color,Urine Yellow; Glucose,Urine (UA) Negative (Negative); Ketones,Urine Negative (Negative); Leukocyte Esterase,Urine Negative (Negative); Nitrite,Urine Negative (Negative); Protein,Urine Trace (Negative); Specific Gravity,Urine 1.032 (1.001-1.035); Urobilinogen,Urine <2.0 mg/dL (<2.0)
[2019-06-14 23:27] LABS: Basophils # (A) 0.1 k/uL (0-0.2); Basophils % (A) 1 %; Eosinophils # (A) 0.1 k/uL (0-0.7); Eosinophils % (A) 1 %; HCT 40.7 % (34.0-46.0); HGB 13.3 gm/dL (11.4-16.0); Lymphocytes # (A) 3.4 k/uL (1.0-4.8); Lymphocytes % (A) 35 %; MCH 28.5 pg (25.0-35.0); MCHC 32.7 g/dL (31.0-37.0); MCV 86.9 fL (80.0-100.0); Mean Platelet Volume 7.2; Monocytes # (A) 0.4 k/uL (0-1.0); Monocytes % (A) 4 %; Neutrophils # (A) 5.6 k/uL (1.3-7.7); Neutrophils % (A) 57 %; Platelet Count 294 k/uL (150-450); RBC 4.69 m/uL (3.80-5.40); RDW 13.8 % (11.5-15.5); WBC 9.8 k/uL (3.8-10.6)
[2019-06-15 00:01] LABS: ALT 11 U/L (9-52); AST 29 U/L (14-36); African American GFR (CKD) >90 (>60 ml/min/1.73 sqM); Albumin 4.2 g/dL (3.5-5.0); Alkaline Phosphatase 66 U/L (38-126); Amylase 56 U/L (30-110); Anion Gap 12 mmol/L; Blood Urea Nitrogen 13 mg/dL (7-17); Calcium 9.4 mg/dL (8.4-10.2); Carbon Dioxide 21 mmol/L (22-30); Chloride 108 mmol/L (98-107); Glucose 119 mg/dL (74-99); Potassium 3.8 mmol/L (3.5-5.1); Sodium 141 mmol/L (137-145); Total Bilirubin 0.2 mg/dL (0.2-1.3)
[2019-06-15] MEDS ORDERED: ONDANSETRON 4 MG ODT STARTER PACK 2 TAB BTL PO STA (00:36)
--- NOTE | 2019-06-15 00:36 | ED ---
Nausea/Vomiting/Diarrhea HPI - General Chief complaint: Nausea/Vomiting/Diarrhea Stated complaint: Nausea Time Seen by Provider: 06/14/19 22:48 Source: patient, family Mode of arrival: ambulatory Limitations: no limitations - History of Present Illness Initial comments: 29-year-old female patient presents to the emergency department today for evaluation of nausea. Patient states that she has felt nauseated for the last 2-3 days. Patient states that she's had decreased appetite with this. She did have one episode of vomiting today. She denies any fever or chills. States that she does use marijuana 1-2 times per week. Denies any new medications. Denies chance of . Denies any abdominal pain, constipation, or diarrhea. Patient denies any recent rash, shortness breath, chest pain, back pain, numbness, tingling, dizziness, weakness, hematuria, dysuria, urinary urgency, urinary frequency, headache, visual changes, or any other complaints. - Related Data Home Medications Medication Instructions Recorded Confirmed Biotin 5 mg PO DAILY 06/14/19 06/14/19 Norethindrone [Jaz] 0.35 mg PO HS 06/14/19 06/14/19 Sertraline [Zoloft] 100 mg PO HS 06/14/19 06/14/19 Previous Rx's Medication Instructions Recorded Ondansetron [Zofran ODT] 4 mg PO Q8HR PRN #15 tab 06/15/19 Allergies Allergy/AdvReac Type Severity Reaction Status Date / Time No Known Allergies Allergy Verified 06/14/19 23:03 Review of Systems ROS Statement: Those systems with pertinent positive or pertinent negative responses have been documented in the HPI. ROS Other: All systems not noted in ROS Statement are negative. Past Medical History Additional Past Medical History / Comment(s): migraines History of Any Multi-Drug Resistant Organisms: None Reported Past Surgical History: Hernia Repair Additional Past Surgical History / Comment(s): [place] teeth Past Anesthesia/Blood Transfusion Reactions: No Reported Reaction Past Psychological History: Anxiety, Bipolar, Depression Smoking Status: Former smoker Past Alcohol Use History: None Reported Past Drug Use History: None Reported - Past Family History Father Family Medical History: Diabetes Mellitus General Exam Limitations: no limitations General appearance: alert, in no apparent distress, other (This is a well- developed, well-nourished adult female patient in no acute distress. Vital signs upon presentation are temperature 98.3F, pulse 53, respirations 18, blood pressure 115/58, pulse ox 99% on room air.) Eye exam: Present: normal appearance, PERRL, EOMI. Absent: scleral icterus, conjunctival injection, periorbital swelling ENT exam: Present: normal exam, normal oropharynx, mucous membranes moist Respiratory exam: Present: normal lung sounds bilaterally. Absent: respiratory distress, wheezes, rales, rhonchi, stridor Cardiovascular Exam: Present: regular rate, normal rhythm, normal heart sounds. Absent: systolic murmur, diastolic murmur, rubs, gallop, clicks GI/Abdominal exam: Present: soft, normal bowel sounds. Absent: distended, tenderness, guarding, rebound, rigid Back exam: Absent: CVA tenderness (R), CVA tenderness (L) Neurological exam: Present: alert, oriented X3, CN II-XII intact Psychiatric exam: Present: normal affect, normal mood Skin exam: Present: warm, dry, intact, normal color. Absent: rash Course Vital Signs 06/14/19 06/15/19 22:36 00:44 Temperature 98.3 F 98.2 F Pulse Rate 53 L 65 Respiratory 18 18 Rate Blood Pressure 115/58 96/64 O2 Sat by Pulse 99 99 Oximetry Medical Decision Making - Medical Decision Making 29-year-old female patient presents to the emergency department for evaluation of nausea with one episode of vomiting. Physical examination was unremarkable. Abdomen soft and nontender. Afebrile, vital signs. Labs reviewed and are unremarkable. She is not . She'll be given a prescription for Zofran. Instructions to start with clear liquid diet and advance as tolerated. She is instructed to follow-up with her primary care physician for recheck in 1-2 days. Return parameters were discussed in detail. She verbalizes understanding and agrees with this plan. - Lab Data Result diagrams: 06/14/19 23:20 06/14/19 23:20 Lab Results 06/14/19 06/14/19 06/14/19 Range/Units 23:16 23:16 23:20 WBC (3.8-10.6) k/uL RBC (3.80-5.40) m/uL Hgb (11.4-16.0) gm/dL Hct (34.0-46.0) % MCV (80.0-100.0) fL MCH (25.0-35.0) pg MCHC (31.0-37.0) g/dL RDW (11.5-15.5) % Plt Count (150-450) k/uL Neutrophils % % Lymphocytes % % Monocytes % % Eosinophils % % Basophils % % Neutrophils # (1.3-7.7) k/uL Lymphocytes # (1.0-4.8) k/uL Monocytes # (0-1.0) k/uL Eosinophils # (0-0.7) k/uL Basophils # (0-0.2) k/uL Sodium 141 (137-145) mmol/L Potassium 3.8 (3.5-5.1) mmol/L Chloride 108 H (98-107) mmol/L Carbon Dioxide 21 L (22-30) mmol/L Anion Gap 12 mmol/L BUN 13 (7-17) mg/dL Creatinine 0.69 (0.52-1.04) mg/dL Est GFR (CKD-EPI)AfAm >90 (>60 ml/min/1.73 sqM) Est GFR (CKD-EPI)NonAf >90 (>60 ml/min/1.73 sqM) Glucose 119 H (74-99) mg/dL Calcium 9.4 (8.4-10.2) mg/dL Total Bilirubin 0.2 (0.2-1.3) mg/dL AST 29 (14-36) U/L ALT 11 (9-52) U/L Alkaline Phosphatase 66 (38-126) U/L Total Protein 7.0 (6.3-8.2) g/dL Albumin 4.2 (3.5-5.0) g/dL Amylase 56 (30-110) U/L Lipase 64 (23-300) U/L Urine Color Yellow Urine Appearance Clear (Clear) Urine pH 6.0 (5.0-8.0) Ur Specific [place] 1.032 (1.001-1.035) Urine Protein Trace H (Negative) Urine Glucose (UA) Negative (Negative) Urine Ketones Negative (Negative) Urine Blood Negative (Negative) Urine Nitrite Negative (Negative) Urine Bilirubin Negative (Negative) Urine Urobilinogen <2.0 (<2.0) mg/dL Ur Leukocyte Esterase Negative (Negative) Urine HCG, Qual Not Detected (Not Detectd) 06/14/19 Range/Units 23:20 WBC 9.8 (3.8-10.6) k/uL RBC 4.69 (3.80-5.40) m/uL Hgb 13.3 (11.4-16.0) gm/dL Hct 40.7 (34.0-46.0) % MCV 86.9 (80.0-100.0) fL MCH 28.5 (25.0-35.0) pg MCHC 32.7 (31.0-37.0) g/dL RDW 13.8 (11.5-15.5) % Plt Count 294 (150-450) k/uL Neutrophils % 57 % Lymphocytes % 35 % Monocytes % 4 % Eosinophils % 1 % Basophils % 1 % Neutrophils # 5.6 (1.3-7.7) k/uL Lymphocytes # 3.4 (1.0-4.8) k/uL Monocytes # 0.4 (0-1.0) k/uL Eosinophils # 0.1 (0-0.7) k/uL Basophils # 0.1 (0-0.2) k/uL Sodium (137-145) mmol/L Potassium (3.5-5.1) mmol/L Chloride (98-107) mmol/L Carbon Dioxide (22-30) mmol/L Anion Gap mmol/L BUN (7-17) mg/dL Creatinine (0.52-1.04) mg/dL Est GFR (CKD-EPI)AfAm (>60 ml/min/1.73 sqM) Est GFR (CKD-EPI)NonAf (>60 ml/min/1.73 sqM) Glucose (74-99) mg/dL Calcium (8.4-10.2) mg/dL Total Bilirubin (0.2-1.3) mg/dL AST (14-36) U/L ALT (9-52) U/L Alkaline Phosphatase (38-126) U/L Total Protein (6.3-8.2) g/dL Albumin (3.5-5.0) g/dL Amylase (30-110) U/L Lipase (23-300) U/L Urine Color Urine Appearance (Clear) Urine pH (5.0-8.0) Ur Specific [place] (1.001-1.035) Urine Protein (Negative) Urine Glucose (UA) (Negative) Urine Ketones (Negative) Urine Blood (Negative) Urine Nitrite (Negative) Urine Bilirubin (Negative) Urine Urobilinogen (<2.0) mg/dL Ur Leukocyte Esterase (Negative) Urine HCG, Qual (Not Detectd) Disposition Clinical Impression: Nausea & vomiting Disposition: HOME SELF-CARE Condition: Good Instructions (If sedation given, give patient instructions): Acute Nausea and Vomiting (ED) Additional Instructions: Start with clear liquid diet and advance as tolerated. Take medication as directed. Return to the emergency department for any new, worsening, or concerning symptoms. Prescriptions: Ondansetron [Zofran ODT] 4 mg PO Q8HR PRN #15 tab PRN Reason: Nausea Is patient prescribed a controlled substance at d/c from ED?: No Referrals: Adam Bhatti DO [Primary Care Provider] - 1-2 days Time of Disposition: 00:36
[2019-06-15 00:45] VITALS: BP 96/64; PULSE 65; TEMP 98.2
== END 2019-06-15 00:48 | disposition home or self-care (01) ==
LOC: EC 22:09
DX: R11.2 Nausea with vomiting, unspecified (principal); R19.7 Diarrhea, unspecified; R63.0 Anorexia; F41.9 Anxiety disorder, unspecified; F32.9 Major depressive disorder, single episode, unspecified; Z87.891 Personal history of nicotine dependence; Z79.3 Long term (current) use of hormonal contraceptives; Z79.899 Other long term (current) drug therapy
CPT/HCPCS: 99284; 96374; 96361; 36415; 80053; 82150; 83690; 85025; 81003; 81025; J2405

== ENCOUNTER 2020-10-12 18:40 | Emergency (ER) | payer OTHER ==
[2020-10-12 18:49] VITALS: BP 116/68; PULSE 72; RESP 18; TEMP 98.2
[2020-10-12] MEDS ORDERED: SODIUM CHLORIDE 0.9% 2,000 ML IV STA (19:18)
[2020-10-12] MEDS ORDERED: METOCLOPRAMIDE 5 MG/ML 2 ML VIAL IVP STA (19:18)
[2020-10-12] MEDS ORDERED: diphenhydrAMINE 50 MG/ML 1 ML VIAL IVP STA (19:18)
--- NOTE | 2020-10-12 19:26 | ED ---
General Adult HPI - General Chief complaint: Nausea/Vomiting/Diarrhea Stated complaint: early /poss dehydration Time Seen by Provider: 10/12/20 19:06 Source: patient, RN notes reviewed Mode of arrival: ambulatory Limitations: no limitations - History of Present Illness Initial comments: This a 30-year-old female presents emergency Department chief complaint of nausea vomiting dehydration. Patient states she had positive tests in August. Her last mental cycle is about a August. Patient is A0. Patient has an appointment with her HEALTH OFFICER at the end of November. Patient denies any vaginal bleeding or vaginal discharge. Patient states she has some intermittent abdominal cramping no severe pain. Denies any flank pain. Patient states cannot keep anything down and feels very dehydrated. - Related Data Home Medications Medication Instructions Recorded Confirmed Biotin 5 mg PO DAILY 06/14/19 06/14/19 Norethindrone [Jaz] 0.35 mg PO HS 06/14/19 06/14/19 Sertraline [Zoloft] 100 mg PO HS 06/14/19 06/14/19 Previous Rx's Medication Instructions Recorded Ondansetron [Zofran ODT] 4 mg PO Q8HR PRN #15 tab 06/15/19 Allergies Allergy/AdvReac Type Severity Reaction Status Date / Time No Known Allergies Allergy Verified 10/12/20 18:49 Review of Systems ROS Statement: Those systems with pertinent positive or pertinent negative responses have been documented in the HPI. ROS Other: All systems not noted in ROS Statement are negative. Past Medical History Additional Past Medical History / Comment(s): migraines History of Any Multi-Drug Resistant Organisms: None Reported Past Surgical History: Hernia Repair Additional Past Surgical History / Comment(s): [place] teeth Past Anesthesia/Blood Transfusion Reactions: No Reported Reaction Past Psychological History: Anxiety, Bipolar, Depression Smoking Status: Never smoker Past Alcohol Use History: None Reported Past Drug Use History: None Reported - Past Family History Father Family Medical History: Diabetes Mellitus General Exam Limitations: no limitations General appearance: alert, in no apparent distress Head exam: Present: atraumatic, normocephalic, normal inspection Eye exam: Present: normal appearance, PERRL, EOMI. Absent: scleral icterus, conjunctival injection, periorbital swelling ENT exam: Present: normal exam, normal oropharynx, mucous membranes moist Neck exam: Present: normal inspection, full ROM. Absent: tenderness, meningismus, lymphadenopathy Respiratory exam: Present: normal lung sounds bilaterally. Absent: respiratory distress, wheezes, rales, rhonchi, stridor Cardiovascular Exam: Present: regular rate, normal rhythm, normal heart sounds. Absent: systolic murmur, diastolic murmur, rubs, gallop, clicks GI/Abdominal exam: Present: soft, tenderness (Minimal left lower), normal bowel sounds. Absent: distended, guarding, rebound, rigid Back exam: Absent: CVA tenderness (R), CVA tenderness (L) Neurological exam: Present: alert, oriented X3 Skin exam: Present: warm, dry, intact, normal color. Absent: rash Course Vital Signs 10/12/20 18:45 Temperature 98.2 F Pulse Rate 72 Respiratory 18 Rate Blood Pressure 116/68 O2 Sat by Pulse 100 Oximetry Medical Decision Making - Medical Decision Making 31-year-old female presented for nausea vomiting . Patient is on results. Patient's ultrasound shows intrauterine gestational sac 5 weeks and 6 days. Patient's labwork unremarkable urinalysis does show signs of dehydration patient was given 2 L of fluid patient states she feels greatly improved. She is advised to contact her HEALTH OFFICER Dr. Myers for closer follow-up and recommendations for medications other than taking [id number] Unisom and B6. - Lab Data Result diagrams: 10/12/20 19:23 10/12/20 19:23 Lab Results 10/12/20 10/12/20 10/12/20 Range/Units 19:23 19:23 19:23 WBC 10.5 (3.8-10.6) k/uL RBC 4.37 (3.80-5.40) m/uL Hgb 12.9 (11.4-16.0) gm/dL Hct 37.0 (34.0-46.0) % MCV 84.7 (80.0-100.0) fL MCH 29.5 (25.0-35.0) pg MCHC 34.8 (31.0-37.0) g/dL RDW 11.6 (11.5-15.5) % Plt Count 286 (150-450) k/uL MPV 6.9 Neutrophils % 71 % Lymphocytes % 23 % Monocytes % 4 % Eosinophils % 1 % Basophils % 1 % Neutrophils # 7.5 (1.3-7.7) k/uL Lymphocytes # 2.4 (1.0-4.8) k/uL Monocytes # 0.4 (0-1.0) k/uL Eosinophils # 0.1 (0-0.7) k/uL Basophils # 0.1 (0-0.2) k/uL Sodium 135 L (137-145) mmol/L Potassium 3.6 (3.5-5.1) mmol/L Chloride 103 (98-107) mmol/L Carbon Dioxide 24 (22-30) mmol/L Anion Gap 8 mmol/L BUN 7 (7-17) mg/dL Creatinine 0.55 (0.52-1.04) mg/dL Est GFR (CKD-EPI)AfAm >90 (>60 ml/min/1.73 sqM) Est GFR (CKD-EPI)NonAf >90 (>60 ml/min/1.73 sqM) Glucose 150 H (74-99) mg/dL Calcium 9.5 (8.4-10.2) mg/dL Total Bilirubin 0.5 (0.2-1.3) mg/dL AST 22 (14-36) U/L ALT 16 (4-34) U/L Alkaline Phosphatase 48 (38-126) U/L Total Protein 7.0 (6.3-8.2) g/dL Albumin 4.2 (3.5-5.0) g/dL Amylase 50 (30-110) U/L Lipase 41 (23-300) U/L HCG, Quant 52494.8 mIU/mL Urine Color Yellow Urine Appearance Cloudy H (Clear) Urine pH 6.0 (5.0-8.0) Ur Specific [place] 1.028 (1.001-1.035) Urine Protein Trace H (Negative) Urine Glucose (UA) Negative (Negative) Urine Ketones 4+ H (Negative) Urine Blood Small H (Negative) Urine Nitrite Negative (Negative) Urine Bilirubin Negative (Negative) Urine Urobilinogen <2.0 (<2.0) mg/dL Ur Leukocyte Esterase Trace H (Negative) Urine RBC 3 (0-5) /hpf Urine WBC 2 (0-5) /hpf Ur Squamous Epith Cells 11 H (0-4) /hpf Urine Bacteria Occasional H (None) /hpf Urine Mucus Many H (None) /hpf Disposition Clinical Impression: Dehydration, Nausea/vomiting in Disposition: HOME SELF-CARE Condition: Stable Instructions (If sedation given, give patient instructions): Nausea and Vomiting in (ED) Additional Instructions: Please return to the Emergency Department if symptoms worsen or any other concerns. Is patient prescribed a controlled substance at d/c from ED?: No Referrals: Adam Bhatti DO [Primary Care Provider] - 1-2 days Lexi Myers DO [Doctor of Osteopathic Medicine] - 1-2 days Time of Disposition: 20:52
[2020-10-12 19:37] LABS: Basophils # (A) 0.1 k/uL (0-0.2); Basophils % (A) 1 %; Eosinophils # (A) 0.1 k/uL (0-0.7); Eosinophils % (A) 1 %; HGB 12.9 gm/dL (11.4-16.0); Lymphocytes # (A) 2.4 k/uL (1.0-4.8); Lymphocytes % (A) 23 %; MCH 29.5 pg (25.0-35.0); MCHC 34.8 g/dL (31.0-37.0); MCV 84.7 fL (80.0-100.0); Mean Platelet Volume 6.9; Monocytes # (A) 0.4 k/uL (0-1.0); Monocytes % (A) 4 %; Neutrophils # (A) 7.5 k/uL (1.3-7.7); Neutrophils % (A) 71 %; Platelet Count 286 k/uL (150-450); RBC 4.37 m/uL (3.80-5.40); RDW 11.6 % (11.5-15.5); WBC 10.5 k/uL (3.8-10.6)
[2020-10-12 19:43] LABS: Appearance,Urine Cloudy (Clear); Bacteria,Urine Occasional /hpf; Bilirubin,Urine Negative (Negative); Blood,Urine Small (Negative); Color,Urine Yellow; Glucose,Urine (UA) Negative (Negative); Ketones,Urine 4+ (Negative); Leukocyte Esterase,Urine Trace (Negative); Mucus,Urine Many /hpf; Nitrite,Urine Negative (Negative); Protein,Urine Trace (Negative); RBC,Urine 3 /hpf (0-5); Specific Gravity,Urine 1.028 (1.001-1.035); Squamous Epithelial Cell,Urine 11 /hpf (0-4); Urobilinogen,Urine <2.0 mg/dL (<2.0); WBC,Urine 2 /hpf (0-5)
[2020-10-12 19:46] LABS: ALT 16 U/L (4-34); AST 22 U/L (14-36); African American GFR (CKD) >90 (>60 ml/min/1.73 sqM); Albumin 4.2 g/dL (3.5-5.0); Alkaline Phosphatase 48 U/L (38-126); Amylase 50 U/L (30-110); Anion Gap 8 mmol/L; Blood Urea Nitrogen 7 mg/dL (7-17); Calcium 9.5 mg/dL (8.4-10.2); Carbon Dioxide 24 mmol/L (22-30); Chloride 103 mmol/L (98-107); Glucose 150 mg/dL (74-99); Lipase 41 U/L (23-300); Non-African American GFR(CKD) >90 (>60 ml/min/1.73 sqM); Potassium 3.6 mmol/L (3.5-5.1); Sodium 135 mmol/L (137-145); Total Bilirubin 0.5 mg/dL (0.2-1.3)
--- NOTE | 2020-10-12 20:30 | US ---
EXAMINATION TYPE: Transabdominal DATE OF EXAM: 10/12/2020 8:07 PM COMPARISON: NONE CLINICAL HISTORY: left side pain. Left-sided pain. . . EXAM PERFORMED: Transabdominal (TA) EXAM MEASUREMENTS: GESTATIONAL AGE / DATING Physician Established: Not yet established Dates by LMP: (6 weeks/4 days) EDC: 06/03/2021 Dates by First Scan: This is first scan. Dates by Current Scan for: (5 weeks/6 days) EDC: 06/08/2021 MATERNAL ANATOMY Uterus: 7.1 x 6.4 x 5.0 cm. Right Ovary: Not seen. Left Ovary: 3.8 x 1.9 x 1.6 cm. Upper limits of normal. Color Doppler flow is present. Post CDS / Adnexa: Appear wnl Presence of free fluid: No Presence of corpus luteal cyst: Not seen Presence of subchorionic bleed: Hypoechoic area seen adjacent to the gestational sac measuring 0.4 x 0.5 x 0.4 cm. GESTATION / SURVEY CRL: 0.31 cm. (5 weeks/6 days) Yolk Sac (normal less than 6mm): Not seen. Heart Rate: Heart tones not seen at this time, possibly too early/ too much patient body movement. IUP: CRL seen within gestational sac. Patient denied transvaginal exam at this time. Date of LMP: 08/27/2020 Beta HcG (if available): Not available. IMPRESSION: Intrauterine gestational sac without heart tones detected at this time. Findings may relate to early gestation. Recommend serial beta hCG measurement and follow-up imaging to confirm viability. Suggestion of trace subchorionic hemorrhage.
[2020-10-12 20:31] LABS: HCG,Quantitative Serum 27371.8 mIU/mL
== END 2020-10-12 21:13 | disposition home or self-care (01) ==
LOC: EC 18:40
DX: O21.9 Vomiting of pregnancy, unspecified (principal); O99.281 Endocrine, nutritional and metabolic diseases complicating pregnancy, first trimester; E86.0 Dehydration; O99.341 Other mental disorders complicating pregnancy, first trimester; F41.9 Anxiety disorder, unspecified; F31.9 Bipolar disorder, unspecified; Z3A.01 Less than 8 weeks gestation of pregnancy
CPT/HCPCS: 36415; 80053; 82150; 83690; 85025; 81001; 84702; 76801; 99284; 96374; 96375; 96361 ×2; J1200; J2765

== ENCOUNTER 2021-02-22 17:51 | Outpatient (CLI) | payer OTHER ==
[2021-02-22 18:26] LABS: Appearance,Urine Cloudy (Clear); Bacteria,Urine Moderate /hpf; Bilirubin,Urine Negative (Negative); Blood,Urine Negative (Negative); Budding Yeast,Urine Few /hpf; Color,Urine Yellow; Glucose,Urine (UA) Trace (Negative); Hyaline Casts,Urine 1 /lpf (0-2); Ketones,Urine Trace (Negative); Leukocyte Esterase,Urine Moderate (Negative); Mucus,Urine Occasional /hpf; Nitrite,Urine Negative (Negative); PH, Urine 7.5 (5.0-8.0); Protein,Urine Trace (Negative); RBC,Urine 1 /hpf (0-5); Specific Gravity,Urine 1.019 (1.001-1.035); Squamous Epithelial Cell,Urine 4 /hpf (0-4); Urobilinogen,Urine <2.0 mg/dL (<2.0); WBC,Urine 45 /hpf (0-5)
[2021-02-22] MEDS ORDERED: ONDANSETRON 4 MG/2 ML VIAL IVP STA (18:50)
[2021-02-22] MEDS: LACTATED RINGERS 1,000 ML IV SCH ×3 (19:26→20:48)
[2021-02-22 19:33] LABS: Basophils % (A) 0 %; Eosinophils # (A) 0.1 k/uL (0-0.7); Eosinophils % (A) 1 %; HCT 34.9 % (34.0-46.0); HGB 12.1 gm/dL (11.4-16.0); Lymphocytes # (A) 2.6 k/uL (1.0-4.8); Lymphocytes % (A) 16 %; MCH 30.5 pg (25.0-35.0); MCHC 34.7 g/dL (31.0-37.0); MCV 87.9 fL (80.0-100.0); Mean Platelet Volume 7.3; Monocytes # (A) 0.7 k/uL (0-1.0); Monocytes % (A) 4 %; Neutrophils # (A) 13.2 k/uL (1.3-7.7); Neutrophils % (A) 78 %; Platelet Count 243 k/uL (150-450); RBC 3.97 m/uL (3.80-5.40); RDW 12.9 % (11.5-15.5); WBC 16.8 k/uL (3.8-10.6)
[2021-02-22 19:38] LABS: ALT 14 U/L (4-34); AST 24 U/L (14-36); African American GFR (CKD) >90 (>60 ml/min/1.73 sqM); Albumin 3.6 g/dL (3.5-5.0); Alkaline Phosphatase 67 U/L (38-126); Anion Gap 8 mmol/L; Blood Urea Nitrogen 6 mg/dL (7-17); Calcium 9.3 mg/dL (8.4-10.2); Carbon Dioxide 23 mmol/L (22-30); Chloride 104 mmol/L (98-107); Glucose 100 mg/dL (74-99); Non-African American GFR(CKD) >90 (>60 ml/min/1.73 sqM); Potassium 3.6 mmol/L (3.5-5.1); Sodium 135 mmol/L (137-145); Total Bilirubin 0.2 mg/dL (0.2-1.3); Total Protein 6.4 g/dL (6.3-8.2)
[2021-02-22 20:54] VITALS: BP 116/71; PULSE 87; RESP 16; TEMP 98.3
--- NOTE | 2021-02-23 03:06 | P.MSEPDOC ---
Presenting Problems - Arrival Data Date of Arrival on Unit: 02/22/21 Time of Arrival on Unit: 17:51 Mode of Transport: Wheelchair - Complaint OB-Reason for Admission/Chief Complaint: Acute Nausea/Vomiting, Dizziness Medical History - Information : 2 Para: 1 Term: 1 : 0 Abortions: Spontaneous or Elective: 0 Number of Living Children: 1 - Gestational Age Gestational Age by SERVANDO (wks/days): 25 Weeks and 2 Days Review of Systems - Review of Systems Constitutional: No problems Breast: No problems ENT: No problems Cardiovascular: No problems Respiratory: No problems Gastrointestinal: No problems Genitourinary: No problems Musculoskeletal: No problems Neurological: Dizziness Skin: No problems Vital Signs - Temperature Temperature: 98.3 F Temperature Source: Temporal Artery Scan - Pulse Pulse Oximetery Pulse Rate: 87 Pulse Assessment Method: Pulse Oximetry - Respirations Respiratory Rate: 16 Oxygen Delivery Method: Room Air O2 Sat by Pulse Oximetry: 97 - Blood Pressure Right Arm Blood Pressure: 116/71 Blood Pressure Mean: 86 Blood Pressure Source: Automatic Cuff Medical Screen Scoring (Pre) - Cervical Exam Dilation: Exam Deferred Effacement: Exam Deferred Membranes: Intact - Uterine Contractions Frequency: N/A Duration: N/A Intensity: N/A - Maternal Vital Signs Maternal Temperature: N/A Maternal Blood Pressure: N/A Signs of Preeclampsia: N/A Maternal Respirations: N/A - Maternal Trauma Maternal Trauma: N/A - Assessment - Baby A Baseline FHR: 135 Heart Rate - NICHD Category: Category I (Normal) = 0 Position: N/A Station: N/A - Total Score - Baby A Total Score - Baby A: 0 - Total Score - Baby B Total Score - Baby B: 0 - Total Score - Baby C Total Score - Baby C: 0 - Level of Risk - Baby A Level of Risk - Baby A: Low (0-5) - Level of Risk - Baby B Level of Risk - Baby B: Low (0-5) - Level of Risk - Baby C Level of Risk - Baby C: Low (0-5) Physician Notification (Pre) - Physician Notified Physician Notified Date: 02/22/21 Physician Notified Time: 18:51 New Order Received: Yes - Notification Comment Comment: Dr. Robertson called, report given by Natalia Carvajal. Orders to send CBC, CMP, start IV, give 500ml LR bolus, and 4mg zofran IVP. 1951 - Dr. Robertson called, report given on maternal labs and pt is feeling better. after some IV fluids and zofran. Pt has an appointment with Dr. Myers tomorrow. Orders. to discharge pt home with instructions to keep her appointment and monitor her s/s. Disposition - Disposition OB Disposition: Discharge to home Discharge Date: 02/22/21 Discharge Time: 20:00 I agree with the RN Medical Screening Exam: Yes Case reviewed; plan agreed upon as documented in EMR&OBIX.: Yes Diagnosis: DEHYDRATION
== END 2021-02-22 20:00 | disposition home or self-care (01) ==
LOC: FBPOP 17:51
PROVIDERS: ATTEND Obstetrics & Gynecology
DX: O99.282 Endocrine, nutritional and metabolic diseases complicating pregnancy, second trimester (principal); E86.0 Dehydration; Z3A.25 25 weeks gestation of pregnancy; Z87.891 Personal history of nicotine dependence
CPT/HCPCS: 99214; 96361; 96374; 80053; 85025; 81001; J2405

== ENCOUNTER 2021-05-30 06:02 | Inpatient (IN) | payer OTHER ==
[2021-05-25 16:27] VITALS: BMI 30.7
[2021-05-30] MEDS ORDERED: ceFAZolin 3 GM in SODIUM CHLORIDE 0.9% 100 ML IVPB ONE (06:10)
[2021-05-30] MEDS ORDERED: LACTATED RINGERS 1,000 ML IV ONE (06:10)
[2021-05-30] MEDS ORDERED: CITRIC ACID-SODIUM CITRATE 15 ML CUP PO ONE (06:10)
[2021-05-30 06:53] LABS: Glucose,Whole Blood 125 mg/dL (75-99)
[2021-05-30 07:10] LABS: Basophils % (A) 0 %; Eosinophils # (A) 0.1 k/uL (0-0.7); Eosinophils % (A) 1 %; HCT 35.7 % (34.0-46.0); HGB 11.8 gm/dL (11.4-16.0); Hypochromasia Slight; Lymphocytes # (A) 2.4 k/uL (1.0-4.8); Lymphocytes % (A) 24 %; MCHC 33.2 g/dL (31.0-37.0); MCV 90.3 fL (80.0-100.0); Mean Platelet Volume 7.9; Monocytes # (A) 0.5 k/uL (0-1.0); Monocytes % (A) 5 %; Neutrophils # (A) 6.9 k/uL (1.3-7.7); Neutrophils % (A) 67 %; Platelet Count 218 k/uL (150-450); RBC 3.95 m/uL (3.80-5.40); RDW 14.9 % (11.5-15.5); WBC 10.2 k/uL (3.8-10.6)
--- NOTE | 2021-05-30 08:17 | P.HPOB ---
History of Present Illness H&P Date: 05/30/21 Chief Complaint: repeat low transverse 31 year old presents at 39 weeks for repeat low transverse . Review of Systems All systems: negative Constitutional: Denies chills, Denies fever Eyes: denies blurred vision, denies pain Ears, nose, mouth and throat: Denies headache, Denies sore throat Cardiovascular: Denies chest pain, Denies shortness of breath Respiratory: Denies cough Gastrointestinal: Denies abdominal pain, Denies diarrhea, Denies nausea, Denies vomiting Genitourinary: Denies dysuria, Denies hematuria Musculoskeletal: Denies myalgias Integumentary: Denies pruritus, Denies rash Neurological: Denies numbness, Denies weakness Psychiatric: Denies anxiety, Denies depression Endocrine: Denies fatigue, Denies weight change Past Medical History Past Medical History: Diabetes Mellitus Additional Past Medical History / Comment(s): migraines, GESTATIONAL DIABETES, CARPAL TUNNEL BILAT WRISTS History of Any Multi-Drug Resistant Organisms: None Reported Past Surgical History: Section, Hernia Repair Additional Past Surgical History / Comment(s): [place] teeth Past Anesthesia/Blood Transfusion Reactions: No Reported Reaction Past Psychological History: Anxiety, Bipolar, Depression Smoking Status: Former smoker Past Alcohol Use History: None Reported Additional Past Alcohol Use History / Comment(s): QUIT SMOKING 2010 Past Drug Use History: None Reported - Past Family History Father Family Medical History: Diabetes Mellitus Medications and Allergies Home Medications Medication Instructions Recorded Confirmed Type Doxylamine/Pyridoxine HCl (B6) 1 tab PO DAILY PRN 02/22/21 05/30/21 History [Joce White 10-10 mg Tablet] Ferrous Sulfate [Feosol] 325 mg PO DAILY 05/25/21 05/30/21 History INSULIN LISPRO (humaLOG) [humaLOG] 6 units SQ W/BRKFST 05/25/21 05/30/21 History INSULIN LISPRO (humaLOG) [humaLOG] 7 units SQ BID-W/MEALS 05/25/21 05/30/21 History Insulin Glargine,Hum.rec.anlog 32 unit SQ HS 05/25/21 05/30/21 History [Candida De [place]re U-100] Pnv,Calcium 72/Iron/Folic Acid 1 each PO DAILY 05/25/21 05/30/21 History [ Plus Tablet] QUEtiapine [SEROquel] 50 mg PO HS 05/25/21 05/30/21 History Allergies Allergy/AdvReac Type Severity Reaction Status Date / Time No Known Allergies Allergy Verified 05/25/21 16:17 Exam Osteopathic Statement: *. No significant issues noted on an osteopathic structural exam other than those noted in the History and Physical/Consult. Vital Signs Temp Pulse Resp BP 05/30/21 06:22 97.1 F L 103 H 16 121/76 Intake and Output 05/29/21 05/30/21 05/30/21 22:59 06:59 14:59 Other: Weight 81.193 kg Heart: Regular rate and rhythm Lungs: Clear to auscultation bilaterally Abdomen: Soft, nontender Extremities: Negative Homans sign Results Result Diagrams: 05/30/21 06:58 Abnormal Lab Results - Last 24 Hours (Table) 05/30/21 Range/Units 06:52 POC Glucose (mg/dL) 125 H (75-99) mg/dL Assessment and Plan (1) Gestational diabetes Current Visit: Yes Status: Acute Code(s): O24.419 - GESTATIONAL DIABETES MELLITUS IN , UNSP CONTROL SNOMED Code(s): 67371872 (2) Previous section Current Visit: Yes Status: Acute Code(s): Z98.891 - HISTORY OF UTERINE SCAR FROM PREVIOUS SURGERY SNOMED Code(s): 891714844 Plan: 1. repeat low transverse
[2021-05-30] MEDS ORDERED: ONDANSETRON 4 MG/2 ML VIAL ONE (08:25)
[2021-05-30] MEDS ORDERED: MORPHINE SULFATE (PF) 0.3 MG/0.3 ML SYR ONE (08:25)
[2021-05-30] MEDS ORDERED: KETOROLAC 15 MG/ML 1 ML VIAL ONE (08:25)
[2021-05-30] MEDS ORDERED: OXYTOCIN 30 UNITS/500 ML NS BAG IV ONE (08:25)
[2021-05-30] MEDS ORDERED: PHENYLEPHRINE-0.9% NACL SYG 1,000 MCG/10 ML SYRINGE ONE (08:25)
[2021-05-30] MEDS ORDERED: NALBUPHINE 10 MG/ML (1 ML AMP) ONE (08:25)
[2021-05-30] MEDS ORDERED: ONDANSETRON 4 MG/2 ML VIAL IVP PRN ×2 (09:12→12:09)
[2021-05-30] MEDS ORDERED: diphenhydrAMINE 50 MG/ML 1 ML VIAL IVP PRN ×3 (09:12→12:09)
[2021-05-30] MEDS ORDERED: MORPHINE SULFATE 2 MG/ML SYRINGE IVP PRN (09:12)
[2021-05-30] MEDS ORDERED: NALOXONE 0.4 MG/ML 1 ML VIAL IV PRN ×2 (09:12→12:09)
[2021-05-30] MEDS: LACTATED RINGERS 1,000 ML IV SCH ×4 (09:32→22:18)
[2021-05-30] MEDS ORDERED: METOCLOPRAMIDE 5 MG/ML 2 ML VIAL IVP PRN (12:09)
[2021-05-30] MEDS ORDERED: diphenhydrAMINE 25 MG CAP PO PRN (12:09)
[2021-05-30] MEDS ORDERED: SIMETHICONE 80 MG CHEWABLE PO PRN (12:09)
[2021-05-30] MEDS ORDERED: diphenhydrAMINE 50 MG CAP PO PRN (12:09)
[2021-05-30] MEDS ORDERED: ZOLPIDEM 5 MG TAB PO PRN (12:09)
[2021-05-30] MEDS ORDERED: OXYTOCIN 30 UNITS/500 ML NS 30 UNIT in SALINE 1 500ML.BAG IV SCH (12:15)
--- NOTE | 2021-05-30 12:15 | P.OP ---
Date of Procedure: 05/30/21 Preoperative Diagnosis: 1. term 2. previous Postoperative Diagnosis: 1. term 2. previous Procedure(s) Performed: Repeat low transverse Anesthesia: spinal Surgeon: Lexi Myers Safety Aide #1: David Robertson Estimated Blood Loss (ml): 343 IV fluids (ml): 300 Urine output (ml): 150 Pathology: none sent Condition: stable Disposition: floor Operative Findings: Viable male, Apgars 9, 9, weight 8 lbs. 13 oz. Description of Procedure: Patient was taken to the operating room where spinal anesthesia was found be adequate. She was prepped and draped in normal sterile fashion in dorsal supine position with a leftward tilt. Pfannenstiel skin incision was made the scalpel and carried through to the underlying layer of fascia with the scalpel. Fascia was incised in midline and carried bilaterally with the Norton scissors. The superior aspect of the fascial incision was grasped with Mohini clamps elevated and the underlying rectus muscles dissected off with the Norton's. Attention was then turned to inferior aspect of same incision which in a similar fashion was grasped tented up and the underlying rectus muscles dissected off with the Norton's. The rectus muscles were the midline and the peritoneum was identified tented up and entered sharply with the scalpel. The incision was extended superiorly and inferiorly with good visualization of the bladder. The bladder blade was inserted and the vesicouterine peritoneum was incised the Metzenbaums then carried bilaterally and bladder flap created digitally. A low transverse incision was then made on the uterus with the scalpel. This was carried bilaterally and digital manner. Infant's head delivered atraumatically, nose and mouth bulb suctioned, cord clamped and cut, handed off to waiting nurses. Apgars 9,9, weight 8 lbs. 13 oz. Placenta delivered manually, intact with three-vessel cord. The uterus is exteriorized and cleared of all clots and debris. The uterine incision was closed with 0 Vicryl in a running locked fashion. Second layer of the same sutures used in imbricating fashion to obtain excellent hemostasis. Bladder flap was then reapproximated using 2-0 Vicryl in a running fashion. Both ovaries and tubes appeared normal. The uterus was placed back into the abdomen. The peritoneum was reapproximated using 2-0 Vicryl in a running fashion. The muscles were reapproximated using 2- 0 Vicryl in interrupted fashion. The fascia was reapproximated using 0 Vicryl in a running fashion. The subcutaneous tissues closed with 3-0 Vicryl running fashion. The skin was closed arie. Patient tolerated the procedure well, sponge and instrument counts were correct times 2 and she was taken to the recovery room in stable condition.
[2021-05-30] MEDS: ACETAMINOPHEN TAB 500 MG TAB PO SCH ×2 (12:21→20:06)
[2021-05-30] MEDS: KETOROLAC 15 MG/ML 1 ML VIAL IVP PRN ×2 (16:37→23:40)
[2021-05-30] MEDS ORDERED: Rhogam IMMUNE GLOBULIN 1,500 UNIT/1 ML IM ONE (17:00)
[2021-05-30] MEDS: IBUPROFEN 600 MG TAB PO SCH (17:58)
[2021-05-30] MEDS: SENNOSIDES-DOCUSATE SODIUM 1 EACH TAB PO SCH (20:54)
[2021-05-31] MEDS: LACTATED RINGERS 1,000 ML IV SCH (01:43)
[2021-05-31] MEDS: IBUPROFEN 600 MG TAB PO SCH ×5 (01:47→21:38)
[2021-05-31] MEDS: ACETAMINOPHEN TAB 500 MG TAB PO SCH ×3 (02:43→13:24)
[2021-05-31 05:20] LABS: Basophils % (A) 0 %; Eosinophils # (A) 0.1 k/uL (0-0.7); Eosinophils % (A) 1 %; HCT 35.1 % (34.0-46.0); HGB 11.5 gm/dL (11.4-16.0); Lymphocytes # (A) 1.8 k/uL (1.0-4.8); Lymphocytes % (A) 15 %; MCH 29.5 pg (25.0-35.0); MCHC 32.8 g/dL (31.0-37.0); MCV 90.1 fL (80.0-100.0); Mean Platelet Volume 8.2; Monocytes # (A) 0.6 k/uL (0-1.0); Monocytes % (A) 5 %; Neutrophils # (A) 9.6 k/uL (1.3-7.7); Neutrophils % (A) 77 %; Platelet Count 192 k/uL (150-450); RBC 3.89 m/uL (3.80-5.40); WBC 12.4 k/uL (3.8-10.6)
--- NOTE | 2021-05-31 07:09 | P.PN ---
Progress Note - Text 05/31/21 643am 31-year-old female status post with spinal Duramorph. Patient seen and evaluated this morning for postop pain control patient has a VAS of 1 with no complaints of nausea vomiting and mild pruritus which is getting better
[2021-05-31 12:53] LABS: Hemoglobin A1C 6.1 % (4.0-6.0)
[2021-05-31] MEDS: SENNOSIDES-DOCUSATE SODIUM 1 EACH TAB PO SCH ×2 (18:41→19:47)
[2021-06-01] MEDS: ACETAMINOPHEN TAB 500 MG TAB PO SCH ×5 (00:20→16:57)
[2021-06-01] MEDS: IBUPROFEN 600 MG TAB PO SCH ×4 (03:45→17:05)
--- NOTE | 2021-06-01 07:22 | P.PNOBGPC ---
Subjective - Subjective Principal diagnosis: S/P RLTCS POD #1 Interval history: Pt seen and examined. Denies M/V,F/C, CP, SOB, calf pain. Patient reports: Reports appetite normal, Reports voiding normally, Reports pain well controlled, Reports ambulating normally : doing well Objective - Vital Signs Latest vital signs: Vital Signs Temp Pulse Resp BP Pulse Ox 06/01/21 00:00 97.7 F 61 18 126/76 100 05/31/21 15:40 97.4 F L 72 14 110/61 05/31/21 07:49 97.8 F 60 16 100/64 - Exam Lungs: bilateral: normal Chest: Normal S1, Normal S2 Extremities: Present: normal Abdomen: Present: normal appearance, soft. Absent: distention, tenderness Incision: Present: normal, dry, intact Uterus: Present: normal, firm - Labs Labs: Abnormal Lab Results - Last 24 Hours (Table) 05/31/21 Range/Units 04:50 Hemoglobin A1c 6.1 H (4.0-6.0) % Assessment and Plan (1) Gestational diabetes Current Visit: Yes Status: Resolved Code(s): O24.419 - GESTATIONAL DIABETES MELLITUS IN , UNSP CONTROL SNOMED Code(s): 49752965 (2) Previous section Current Visit: Yes Status: Resolved Code(s): Z98.891 - HISTORY OF UTERINE SCAR FROM PREVIOUS SURGERY SNOMED Code(s): 025514485 (3) Status post repeat low transverse section Current Visit: Yes Status: Acute Code(s): Z98.891 - HISTORY OF UTERINE SCAR FROM PREVIOUS SURGERY SNOMED Code(s): 768363751 Plan: 1. cont pp care
--- NOTE | 2021-06-01 07:56 | P.DS ---
Providers Date of admission: 05/30/21 06:02 Expected date of discharge: 06/01/21 Attending physician: Lexi Myers Primary care physician: Stated None - Discharge Diagnosis(es) (1) Gestational diabetes Current Visit: Yes Status: Resolved (2) Previous section Current Visit: Yes Status: Resolved (3) Status post repeat low transverse section Current Visit: Yes Status: Acute Hospital Course: Patient presented for repeat low transverse . She underwent this procedure without crepitation. Postoperative course was uneventful. She'll be discharged home postoperative day #2 in stable condition to follow-up with me in one week. Plan - Discharge Summary Discharge Rx Participant: No New Discharge Prescriptions: New Ibuprofen [Motrin] 600 mg PO Q6H #40 tab oxyCODONE HCL [OxyIR] 5 mg PO Q4HR PRN #20 tab PRN Reason: Pain Scale 4 - 6 No Action Doxylamine/Pyridoxine HCl (B6) [Diclegis Dr 10-10 mg Tablet] 1 tab PO DAILY PRN PRN Reason: Nausea QUEtiapine [SEROquel] 50 mg PO HS INSULIN LISPRO (humaLOG) [humaLOG] 6 units SQ W/BRKFST INSULIN LISPRO (humaLOG) [humaLOG] 7 units SQ BID-W/MEALS Ferrous Sulfate [Feosol] 325 mg PO DAILY Pnv,Calcium 72/Iron/Folic Acid [ Plus Tablet] 1 each PO DAILY Insulin Glargine,Hum.rec.anlog [Basaglar Kwikpen U-100] 32 unit SQ HS Discharge Medication List Doxylamine/Pyridoxine HCl (B6) [Diclegis Dr 10-10 mg Tablet] 1 tab PO DAILY PRN 02/22/21 [History] Ferrous Sulfate [Feosol] 325 mg PO DAILY 05/25/21 [History] INSULIN LISPRO (humaLOG) [humaLOG] 6 units SQ W/BRKFST 05/25/21 [History] INSULIN LISPRO (humaLOG) [humaLOG] 7 units SQ BID-W/MEALS 05/25/21 [History] Insulin Glargine,Hum.rec.anlog [Basaglar Kwikpen U-100] 32 unit SQ HS 05/25/21 [History] Pnv,Calcium 72/Iron/Folic Acid [ Plus Tablet] 1 each PO DAILY 05/25/21 [History] QUEtiapine [SEROquel] 50 mg PO HS 05/25/21 [History] Ibuprofen [Motrin] 600 mg PO Q6H #40 tab 06/01/21 [Rx] oxyCODONE HCL [OxyIR] 5 mg PO Q4HR PRN #20 tab 06/01/21 [Rx] Follow up Appointment(s)/Referral(s): Lexi Myers DO [Doctor of Osteopathic Medicine] - 1 Week Discharge Disposition: HOME SELF-CARE
[2021-06-01] MEDS: SENNOSIDES-DOCUSATE SODIUM 1 EACH TAB PO SCH ×2 (09:21→21:04)
[2021-06-01] MEDS: LACTATED RINGERS 1,000 ML IV SCH (16:57)
[2021-06-02] MEDS: IBUPROFEN 600 MG TAB PO SCH ×4 (00:46→20:01)
[2021-06-02] MEDS: ACETAMINOPHEN TAB 500 MG TAB PO SCH ×3 (06:03→17:34)
[2021-06-02] MEDS: LACTATED RINGERS 1,000 ML IV SCH (07:40)
[2021-06-02] MEDS: SENNOSIDES-DOCUSATE SODIUM 1 EACH TAB PO SCH (07:51)
[2021-06-02 08:53] VITALS: RESP 18
[2021-06-02 16:13] VITALS: BP 113/71; PULSE 75; TEMP 98.5
== END 2021-06-02 18:30 | disposition home or self-care (01) | DRG 788 ==
LOC: 4FBP 06:02
PROVIDERS: ADMIT Obstetrics & Gynecology; ATTEND Obstetrics & Gynecology
PROC: 10D00Z1 Extraction of Products of Conception, Low, Open Approach (ICD-10-PCS; principal; 2021-05-30 08:00)
DX: O34.211 Maternal care for low transverse scar from previous cesarean delivery (principal); Z87.891 Personal history of nicotine dependence; Z83.3 Family history of diabetes mellitus; Z3A.39 39 weeks gestation of pregnancy; Z37.0 Single live birth; O99.344 Other mental disorders complicating childbirth; O24.424 Gestational diabetes mellitus in childbirth, insulin controlled; F41.9 Anxiety disorder, unspecified; F31.9 Bipolar disorder, unspecified
CPT/HCPCS: 83036; 85025; 85461; 86850; 86900; 86901; 88307

== ENCOUNTER → 2023-09-12 | Outpatient (CLI) | payer BC ==
--- NOTE | 2023-09-12 10:04 | XR ---
EXAMINATION TYPE: XR chest 2V DATE OF EXAM: 09/12/2023 COMPARISON: 01/21/2016 TECHNIQUE: PA and lateral views submitted. HISTORY: Night sweats FINDINGS: The lungs are clear and there is no pneumothorax, pleural effusion, or focal pneumonia. Heart size normal and no overt failure. Osseous structures demonstrate hypertrophic and degenerative changes of the spine. IMPRESSION: 1. No acute process.
== END | disposition home or self-care (01) ==
LOC: RADXRMAIN 09:43
PROVIDERS: ATTEND Family Medicine
DX: R61 Generalized hyperhidrosis (principal)
CPT/HCPCS: 71046